=== PATIENT | male | born 1960 | race Caucasian/White ===

== ENCOUNTER 2020-03-01 17:15 | Emergency (ER) | payer SELFPAY ==
--- NOTE | 2020-03-01 17:27 | ED.MALEGU ---
HPI - Male Genitourinary General Chief complaint: Urogenital-Male Stated complaint: issue urinating Time Seen by Provider: 03/01/20 17:27 Source: patient and RN notes reviewed History of Present Illness HPI Narrative: Patient is a 59-year-old male that presents the urgent care with complaints of difficulty urinating as well as burning and decreased stream. Patient states that started yesterday morning. Patient states that he feels like he has urgency to go and is unable to fully empty his bladder . Patient denies any low back pain, abdominal pain, nausea, vomiting, fever. Patient denies any history of urinary tract infections. Patient has not taken anything for his symptoms [id number]. No other acute complaints. Denies blood in the urine. No acute distress noted. Patient read the plan of care. Related Data Home Medications Medication Instructions Recorded Confirmed fenofibrate nanocrystallized 145 mg PO DAILY 03/01/20 03/01/20 metformin 1,000 mg PO DAILY 03/01/20 03/01/20 metoprolol succinate 25 mg PO DAILY 03/01/20 03/01/20 Allergies Allergy/AdvReac Type Severity Reaction Status Date / Time No Known Allergies Allergy Verified 03/01/20 17:18 Review of Systems Review of Systems: Narrative: CONSTITUTIONAL: Denies fever, chills, or sweats. EYES: Denies visual changes, redness, or discharge. ENT: Denies rhinorrhea, congestion, sore throat, or otalgia. CARDIOVASCULAR: Denies chest pain, palpitations, or edema. RESPIRATORY: Denies cough or dyspnea. GASTROINTESTINAL: Denies abdominal pain, nausea, vomiting, or diarrhea. GENITOURINARY: Reports of dysuria, urgency, decreased urinary output SKIN: Denies rash or itching. MUSCULOSKELETAL: Denies back pain, joint pain, or myalgia. NEUROLOGIC: Denies headache, numbness, or weakness. All other systems reviewed are negative, except as documented in HPI. PMFSH Comments At the time of my signature, I reviewed and agree with the nursing past medical, surgical, social, and family history. There is no relevant family history pertinent to the patient complaint. Exam Narrative: Exam Narrative: GENERAL: This is a well-nourished, well-developed patient, in no apparent distress. HEAD: normocephalic, atraumatic. EYES: PERRL. Sclera clear/white. Vision is grossly intact. EARS: External ears normal NOSE: External nose normal with no obvious nasal discharge THROAT: Mucous membranes moist NECK: Neck supple CARDIOVASCULAR: Regular rate and rhythm without murmurs, gallops, or rubs. RESPIRATORY: Clear to auscultation. Breath sounds equal bilaterally. No wheezes, rales, or rhonchi. GASTROINTESTINAL: Abdomen soft, non-tender, nondistended. No guarding. SKIN: warm, intact with no suspicious lesions or rash, good texture and turgor. NEURO: awake, alert, and oriented to person, place and time. There were no obvious focal neurologic abnormalities. EXTREMITIES: No clubbing, cyanosis, or edema. BACK: Negative bilateral CVA tenderness Course Vital Signs Vital signs: Vital Signs Temperature 98 F 03/01/20 17:31 Pulse Rate 98 03/01/20 17:31 Respiratory Rate 18 03/01/20 17:31 Blood Pressure 110/77 03/01/20 17:31 Pulse Oximetry 99 03/01/20 17:31 Temperature 98 F 03/01/20 17:31 Pulse Rate 98 03/01/20 17:31 Respiratory Rate 18 03/01/20 17:31 Blood Pressure 110/77 03/01/20 17:31 Pulse Oximetry 99 03/01/20 17:31 Reviewed MDM - Male Genitourinary MDM Narrative Medical decision making narrative: Reviewed lab results with the patient. He is aware that urine analysis is indicative of urinary tract infection. Advised the patient to complete oral antibiotic regimen as prescribed. We will culture the urine and call if medication needs to be changed or stopped based on culture results. You also may call the facility after a 3-days to check on the results yourself. Patient should eat and drink with the medication. Increase water intake and avoid sugary and caffei
[2020-03-01 17:31] VITALS: BP 110/77; PULSE 98; RESP 18; TEMP 36.6; O2SAT 99
== END 2020-03-01 17:59 | disposition home or self-care (01) ==
PROVIDERS: Emergency Provider Nurse Practitioner Family; PCP Physician Assistant
DX: N39.0 Urinary tract infection, site not specified (principal); Z95.0 Presence of cardiac pacemaker; M17.0 Bilateral primary osteoarthritis of knee
CPT/HCPCS: 81003; 87077; 87086; 87088; 99213; G0463

== ENCOUNTER 2021-03-27 16:05 | Emergency (ER) | payer OTHER, SELFPAY ==
--- NOTE | ~2021-03-27 | XR_ITS ---
XR chest 2V DATE: 03/27/2021 16:48 INDICATION: Cough for one month TECHNIQUE: 2 views COMPARISON: 06/21/2005 portable AP chest FINDINGS: Left-sided transvenous pacemaker device with leads overlying right atrium and right ventric le. Normal heart size. No hilar or mediastinal enlargement. No pulmonary infiltrate or consolidation, pleural effusion or pulmonary vascular congestion or pneumo thorax. Diffuse osteopenia. Degenerative spurring and mild dextroscoliosis of the thoracic spine. IMPRESSION: No active cardiopulmonary disease Left dual-lead pacemaker device Reviewed, dictated and finalized at location A.
[2021-03-27 16:14] VITALS: BP 118/67; PULSE 90; RESP 20; TEMP 36.8; O2SAT 99
--- NOTE | 2021-03-27 16:51 | ED.GENADULT ---
HPI - General Adult General Chief complaint: Upper Respiratory Infection Stated complaint: cough sob Time Seen by Provider: 03/27/21 16:51 Source: patient and RN notes reviewed Mode of arrival: ambulatory Limitations: no limitations History of Present Illness HPI narrative: 60-year-old male presents with complaints of increasing dry cough for the past 30 days. Romaine reports increasing coughing without relief. Constant dry cough with chest congestion. Rhinorrhea and congestion. Denies sore throat. No high fevers, drooling, neck or throat swelling. No chest pain, wheezing, or shortness of breath. No known exacerbation factors. Denies nausea, vomiting, and abdominal pain. Tolerating liquids well. Remains active. The patient reports he have not been diagnosed with COVID-19. The patient reports he received 2 Ze-gen COVID-19 vaccines, last February 09, 2021. The patient reports he is not waiting for the results of a COVID-19 lab test. The patient reports he do not have chills, weakness, or fatigue. The patient reports he do not have any loss of taste or smell, or diarrhea. Denies recent traveling. Denies concerns for COVID-19 or exposures been home with limited outdoor exposure except for essential household needs, work, and return home. At this time, patient is not suspected of having COVID-19. Some parts of this dictation were generated by voice recognition software and may contain typographical and/or grammatical inaccuracies. Related Data Home Medications Medication Instructions Recorded Confirmed metformin 1,000 mg PO BID 03/01/20 03/27/21 metoprolol succinate 25 mg PO DAILY 03/01/20 03/27/21 fenofibrate 160 mg PO DAILY 03/27/21 03/27/21 glipizide 5 mg PO DAILY 03/27/21 03/27/21 pioglitazone 45 mg PO DAILY 03/27/21 03/27/21 sitagliptin [Januvia] 100 mg PO DAILY 03/27/21 03/27/21 Allergies Allergy/AdvReac Type Severity Reaction Status Date / Time No Known Allergies Allergy Verified 03/27/21 16:09 Review of Systems Review of Systems: Narrative: CONSTITUTIONAL: Denies fever, chills, sweats. EYES: Denies visual changes, redness, discharge. ENT: Complains of rhinorrhea, congestion. Denies sore throat, otalgia. CARDIOVASCULAR: Denies chest pain, palpitations, edema. RESPIRATORY: Denies dyspnea, wheezing. Complains of dry cough, chest congestion. GASTROINTESTINAL: Denies abdominal pain, nausea, vomiting, diarrhea. GENITOURINARY: Denies dysuria, hematuria, abnormal discharge. SKIN: Denies rash or itching. MUSCULOSKELETAL: Denies acute back pain, joint pain, or myalgia. NEUROLOGIC: Denies numbness or focal weakness. PSYCHIATRIC: Denies anxiety or depression. All systems reviewed & are unremarkable except as noted in HPI and below. [facility] Past Medical History Medical History (Updated 04/03/21 @ 05:09 by TAWNY Wang) Diabetes Pacemaker Surgical History Surgical History (Updated 04/03/21 @ 05:07 by TAWNY Wang) No significant past surgical history Family History Family History (Updated 04/03/21 @ 05:08 by TAWNY Wang) Father Alive and well Mother COPD (chronic obstructive pulmonary disease) Social History Social History (Updated 04/03/21 @ 05:11 by TAWNY Wang) Smoking status: Never smoker Tobacco type: cigarettes Second hand tobacco smoke exposure: No Alcohol intake: former Substance use: never Living arrangements: with family Occupation/Education: occupation Gender identity (if verbalized by the patient): Male Comments At time of signature, agree with nurse past medical, surgical, social, and family history. There is no relevant family history pertinent to the presenting complaint. Exam Narrative: Exam Narrative: GENERAL: This is a well-nourished, well-developed patient, in no apparent distress. Talks in full sentences and ambulates with steady gait without dyspnea. HEAD: Normocephalic, atraumatic. EYES: PERRL.
== END 2021-03-27 17:10 | disposition home or self-care (01) ==
PROVIDERS: Emergency Provider Nurse Practitioner Family; PCP Physician Assistant
DX: J40 Bronchitis, not specified as acute or chronic (principal); E11.9 Type 2 diabetes mellitus without complications; M17.0 Bilateral primary osteoarthritis of knee; Z95.0 Presence of cardiac pacemaker
CPT/HCPCS: 71046; 99213; G0463

== ENCOUNTER 2021-09-27 15:00 | Outpatient (RCR) | payer OTHER, SELFPAY ==
--- NOTE | 2021-09-20 11:37 | PTOPEVAL ---
PHYSICAL THERAPY EVALUATION AND PLAN OF CARE Thank you for referring Romaine Hodgson to [facility].? The patient is scheduled to be seen for therapy? 1-2x/week for 4-7 weeks. Please review, sign, date and return this plan of care DAPHNE. I agree with and certify that the following plan of care is medically necessary. Referring Physician Date Attending Provider: Anirudh Hitchcock, PA Evaluation Outpatient Past Medical History Cardiovascular History Hx Pacemaker Yes Respiratory History Hx Bronchitis Yes Musculoskeletal History Hx Arthritis Yes: bilat knees Hx Orthopedic Surgery Yes: right wrist Endocrine History Hx Diabetes Yes: medication controlled Diagnosis left shoulder pain Onset March 2021 Subjective Information states that raising overhead, Query Text:As Reported By Patient/ putting pressure on it, and Family reaching behind him he feels a pain that goes down from the shoulder down the arm. Lifting things causes pain. Cannot sleep on left side for longer than 30minutes. There is a lot of ache. States that this started in March with a small ache (after he got his covid shot) and progressively worsening over the the next several months. Now it it is stable and not getting worse or better. Self Report Pain Assessment Left Shoulder(s) Reported Pain Level 0 Pain Description Aching,Pulling Pain Frequency Chronic,Continuous Lowest Pain Intensity 0 Greatest Pain Intensity 6 Pain Aggravating Factors Lifting,Weight Bearing/ Standing Other Pain Aggravating Factors overhead and behind back movement Pain Score Pain Score 0: Self Report Interventions Used Interventions Used By Clinicians Exercise,Joint Mobilization, Manual Therapy Techniques Pain Relief Interventions Used By Position Change Patient Upper Extremity Range of Motion Scapular/ Shoulder Range of Motion Left Shoulder Flexion - Active 125 Shoulder Abduction - Active 105 Shoulder Medial Rotation - Active left PSIS Query Text:Reach Behind the Back Shoulder Lateral Rotation - Active left ear lobe Query Text:Reach Behind the Head Upper Extremity Muscle Strength Testing Scapular/Shoulder Left Shoulder Flexion Strength 4 Good Shoulder Abduct
--- NOTE | 2021-09-27 15:33 | PCPTNOTE ---
Patient did not show up for scheduled appointment this date. Called and spoke with Pt, he stated I called yesterday and told them I wasn't going to be there. Apologized for the miscommunication. Reminded Pt of upcoming appointment on 10/04/21 @ 13:30.
--- NOTE | 2021-10-04 14:28 | PCPTNOTE ---
Patient did not show up for scheduled appointment this date; called patient who answered the phone starting off conversation Don't you guys ever listen to your voice messages! which further stated he was not coming here because pulling a band and moving his arm is not therapy called his doctor and wants to go some place where he can lift weights. Attempted to educate patient on the process of what physical therapy and senior physical therapist are but patient yelled into the phone stating I am not coming back! and hung up the phone. Notified treating physical therapist and cancelled all further appointments.
--- NOTE | 2021-10-09 11:25 | PCPTNOTE ---
PHYSICAL THERAPY DISCHARGE NOTE Attending Provider: Anirudh Hitchcock, PA Patient:Romaine Hodgson Date of :1960 Romaine will be discharged from physical therapy at this time. Patient?s initial visit was on 09/20/2021. He no showed two visits and when we called to inquire, he informed us that he would like to cancel his visits and go to a different facility because he wants to lift weights. Thank you for referring this patient to [facility]. Please review, sign, date and return this discharge summary DAPHNE. I have been updated about the patient's current status and I agree with discharge from the above service at this time. Referring Physician Date
== END 2021-10-10 11:36 | disposition home or self-care (01) ==
LOC: ANHPT 15:00
PROVIDERS: PCP Physician Assistant; Visit Provider Physician Assistant
DX: M25.512 Pain in left shoulder (principal)
CPT/HCPCS: 97140; 97162

== ENCOUNTER 2021-12-18 11:02 | Emergency (ER) | payer OTHER, SELFPAY ==
--- NOTE | ~2021-12-18 | XR_ITS ---
EXAMINATION: XR shoulder LT min 2V, [id number] DATE: 12/18/2021 11:35 INDICATION: Left shoulder pain and limited range of motion and lateral left rib pain post sledding in jury. TECHNIQUE: 1. AP internally and externally rotated, AP oblique externally rotated and transscapular Y views of t he left shoulder were obtained. 2. Frontal view of the chest and 3 views of the left ribs were obtained. COMPARISON: None FINDINGS: Left shoulder: Normal alignment. No fracture. Glenohumeral and acromioclavicular joint spaces are normal. Cardiac p acemaker leads project over the right atrium and right ventricular outflow tract. Chest and left ribs: No rib fractures. Lungs are clear with no focal airspace opacities, pulmonary edema, pleural effusion or pneumothorax. Cardiac silhouette is normal with prominent left paracardial fat pad. Moderate thor acic spondylosis. IMPRESSION: 1. No acute cardiopulmonary or acute osseous abnormality. Reviewed, dictated and finalized at location A. ES 1 THROUGH 6 TEACHER IMPRESSION: 1. No acute cardiopulmonary or acute osseous abnormality.
[2021-12-18 11:10] VITALS: BP 141/90; PULSE 92; RESP 20; TEMP 37.3; O2SAT 100
[2021-12-18 11:17] VITALS: BP 141/90; PULSE 92; RESP 20; TEMP 37.3; O2SAT 100
--- NOTE | 2021-12-18 11:17 | ED.UPPEXIN ---
HPI - Extremity Injury (Upper) General Chief Complaint: Extremity Injury, Upper Stated Complaint: Fell Injury/Left Shoulder Pain Time Seen by Provider: 12/18/21 11:20 Source: patient History of Present Illness HPI narrative: patient presents with left shoulder and left rib pain. Patient states he went sledding yesterday and there is a bump at the end of the hill causing the slide to go out from under him and he landed on his left side. Patient denies any shortness of breath no chest pain states he has pain to his left shoulder with movement and pain to his left rib area. No open areas no bruising noted no swelling noted patient denies any head injury denies any other injuries MD complaint: injury to: left Related Data Home Medications Medication Instructions Recorded Confirmed metformin 1,000 mg PO BID 03/01/20 12/18/21 metoprolol succinate 25 mg PO DAILY 03/01/20 12/18/21 fenofibrate 160 mg PO DAILY 03/27/21 12/18/21 glipizide 5 mg PO DAILY 03/27/21 12/18/21 pioglitazone 45 mg PO DAILY 03/27/21 12/18/21 sitagliptin [Januvia] 100 mg PO DAILY 03/27/21 12/18/21 Allergies Allergy/AdvReac Type Severity Reaction Status Date / Time No Known Allergies Allergy Verified 03/27/21 16:09 Review of Systems Review of Systems: CONSTITUTIONAL: Denies fever, chills, or sweats. EYES: Denies visual changes, redness, or discharge. ENT: Denies rhinorrhea, congestion, sore throat, or otalgia. CARDIOVASCULAR: Denies chest pain, palpitations, or edema. RESPIRATORY: Denies cough or dyspnea. GASTROINTESTINAL: Denies abdominal pain, nausea, vomiting, or diarrhea. GENITOURINARY: Denies dysuria or hematuria. SKIN: Denies rash or itching. MUSCULOSKELETAL: Denies back pain, joint pain, or myalgia. Reports left shoulder and left rib pain NEUROLOGIC: Denies headache, numbness, or weakness. PSYCHIATRIC: Denies anxiety or depression. [facility] Past Medical History Medical History (Updated 12/18/21 @ 11:27 by TAWNY Hays) Diabetes Pacemaker Surgical History Surgical History (Updated 04/03/21 @ 05:07 by TAWNY Wang) No significant past surgical history Family History Family History (Updated 04/03/21 @ 05:08 by TAWNY Wang) Father Alive and well Mother COPD (chronic obstructive pulmonary disease) Social History Social History (Updated 04/03/21 @ 05:11 by TAWNY Wang) Smoking status: Never smoker Tobacco type: cigarettes Second hand tobacco smoke exposure: No Alcohol intake: former Substance use: never Gender identity (if verbalized by the patient): Male Comments At time of signature, agree with nursing past medical, surgical, social and family history. There is no relevant family history pertinent to the presenting complaint Exam Narrative: GENERAL: Well-appearing, well-nourished, and in no acute distress. HEAD: Normocephalic, atraumatic. EYES: PERRLA and EOMI. ENT: Nares clear, no rhinorrhea or epistaxis. Mucous membranes moist. NECK: Supple. CHEST: Clear to auscultation. No respiratory distress. HEART: Regular rate and rhythm. No murmur heard. Normal peripheral pulses. ABDOMEN: Soft, nontender, nondistended, normal active bowel sounds. EXTREMITIES: Normal range of motion. No edema. ALL PAIN REPRODUCIBLE. RIB TENDER. NO CREPITUS OR SQ EMPHYSEMA OR DEFORMITY OR STEP OFFS. NO ECCHYMOSIS OR LESIONS. NO SWELLING, BRUISING, SKIN CHANGES. SKIN INTACT. NORMAL RADIAL PULSE. NO DEFORMITY OF SHOULDER. NO CLAVICLE TENDERNESS. NORMAL UE SENSATION AND STRENGTH. ROM EVALUATED - CAN RAISE UE ABOVE SHOULDER, CAN ABDUCT, ADDUCT, EXTERNALLY ROTATE AND CAN INTERNALLY ROTATE AND RAISE THUMB UP THE SPINE. NO AC JOINT TENDERNESS, CAN CROSS ARM HORIZONTALLY AND PLACE HAND ON OPPOSITE SHOULDER, NO WINGING OF THE SCAPULA. SUPRASPINATUS APPEARS NORMAL WITH ARMS STRAIGHT OUT AT 30 DEGREES, THUMB DOWN , CAN ABDUCT AGAINST RESISTANCE. SKIN: Warm, dry, no rash. NEURO: No focal deficits. Akbar
== END 2021-12-18 12:02 | disposition home or self-care (01) ==
PROVIDERS: Emergency Provider Nurse Practitioner Family; PCP Physician Assistant
DX: S20.20XA Contusion of thorax, unspecified, initial encounter (principal); S40.012A Contusion of left shoulder, initial encounter; W19.XXXA Unspecified fall, initial encounter; Y93.23 Activity, snow (alpine) (downhill) skiing, snowboarding, sledding, tobogganing and snow tubing; E11.9 Type 2 diabetes mellitus without complications; Z95.0 Presence of cardiac pacemaker
CPT/HCPCS: 71101; 73030; 99214; G0463

== ENCOUNTER 2021-12-29 13:19 | Emergency (ER) | payer OTHER, SELFPAY ==
--- NOTE | ~2021-12-29 | XR_ITS ---
EXAMINATION: XR ribs LT 2V INDICATION: Chest pain after coughing, initial encounter TECHNIQUE: 3 views of the left ribs were obtained. COMPARISON: None. FINDINGS: There are acute nondisplaced fractures of the left fifth, eighth, and ninth ribs. There are minimal airspace opacities of the lung bases. Cardiomegaly is noted. There is no pleural effusion or pneumothorax. A dual-lead cardiac pacemaker of the left chest wall ends with leads in expected locat ions. IMPRESSION: 1. Nondisplaced fractures of the left fifth, eighth, and ninth ribs. 2. Cardiomegaly. Reviewed, dictated and finalized at location A. [facility]
[2021-12-29 13:23] VITALS: BP 138/81; PULSE 94; RESP 16; TEMP 36.4; O2SAT 100
--- NOTE | 2021-12-29 13:32 | ED.GENADULT ---
HPI - General Adult General Chief complaint: Back Pain/Injury Stated complaint: Sharp pain in left rib area pain Time Seen by Provider: 12/29/21 13:22 Source: patient and RN notes reviewed History of Present Illness HPI narrative: Patient is 61-year-old male who presents the urgent care with complaints of left rib pain. Patient states that a couple weeks ago he was in here after a sledding incident and had multiple contusions . Patient states that his x-rays were all negative at that time and he started to feel much better. States that last night he had a mild cough and immediate stabbing in the left lateral rib region. Patient states that the pain increases with movement or cough. States that he did take tramadol for the pain. Denies of any recent new injury or fall. Denies of any shortness of breath or chest pain. No other acute complaints. No acute distress noted. Patient read the plan of care. Some parts of this dictation were generated by voice recognition software and may contain typographical and/or grammatical inaccuracies. Related Data Home Medications Medication Instructions Recorded Confirmed metformin 1,000 mg PO BID 03/01/20 12/18/21 metoprolol succinate 25 mg PO DAILY 03/01/20 12/18/21 fenofibrate 160 mg PO DAILY 03/27/21 12/18/21 glipizide 5 mg PO DAILY 03/27/21 12/18/21 pioglitazone 45 mg PO DAILY 03/27/21 12/18/21 sitagliptin [Januvia] 100 mg PO DAILY 03/27/21 12/18/21 Allergies Allergy/AdvReac Type Severity Reaction Status Date / Time No Known Allergies Allergy Verified 12/29/21 13:32 Review of Systems Review of Systems: CONSTITUTIONAL: Denies fever, chills, or sweats. EYES: Denies visual changes, redness, or discharge. ENT: Denies rhinorrhea, congestion, sore throat, or otalgia. CARDIOVASCULAR: Denies chest pain, palpitations, or edema. RESPIRATORY: Denies cough or dyspnea. GASTROINTESTINAL: Denies abdominal pain, nausea, vomiting, or diarrhea. GENITOURINARY: Denies dysuria or hematuria. SKIN: Denies rash or itching. MUSCULOSKELETAL: Reports of left lateral rib pain. Denies back pain, joint pain, or myalgia. NEUROLOGIC: Denies headache, numbness, or weakness. All other systems reviewed are negative, except as documented in HPI. [facility] Past Medical History Medical History (Updated 12/29/21 @ 13:59 by TAWNY Christensen) Diabetes Pacemaker Surgical History Surgical History (Updated 04/03/21 @ 05:07 by TAWNY Wang) No significant past surgical history Family History Family History (Updated 04/03/21 @ 05:08 by TAWNY Wang) Father Alive and well Mother COPD (chronic obstructive pulmonary disease) Social History Social History (Updated 04/03/21 @ 05:11 by TAWNY Wang) Smoking status: Never smoker Tobacco type: cigarettes Second hand tobacco smoke exposure: No Alcohol intake: former Substance use: never Gender identity (if verbalized by the patient): Male Comments At the time of my signature, I reviewed and agree with the nursing past medical, surgical, social, and family history. There is no relevant family history pertinent to the patient complaint. Exam Narrative: GENERAL: This is a well-nourished, well-developed patient, in no apparent distress. HEAD: normocephalic, atraumatic. EYES: PERRL. Sclera clear/white. Vision is grossly intact. EARS: External ears normal NOSE: External nose normal with no obvious nasal discharge, nares without redness, no rhinorrhea. THROAT: Mucous membranes moist NECK: Neck supple CARDIOVASCULAR: Regular rate and rhythm without murmurs, gallops, or rubs. RESPIRATORY: Clear to auscultation. Breath sounds equal bilaterally. No wheezes, rales, or rhonchi. SKIN: warm, intact with no suspicious lesions or rash, good texture and turgor. NEURO: awake, alert, and oriented to person, place and time. There were no obvious focal neurologic abnormalities. EXTREMITIES: No clubbing, cyanosis,
== END 2021-12-29 14:05 | disposition home or self-care (01) ==
PROVIDERS: Emergency Provider Nurse Practitioner Family; PCP Physician Assistant
DX: S22.42XA Multiple fractures of ribs, left side, initial encounter for closed fracture (principal); X58.XXXA Exposure to other specified factors, initial encounter; E11.9 Type 2 diabetes mellitus without complications; Z95.0 Presence of cardiac pacemaker
CPT/HCPCS: 71100; 99213; G0463

== ENCOUNTER 2022-04-05 10:05 | Emergency (ER) | payer OTHER, SELFPAY ==
--- NOTE | ~2022-04-05 | CT_ITS ---
EXAMINATION: CT cervical spine wo con DATE: 04/05/2022 10:57 INDICATION: Left hand numbness. Left upper limb pain. TECHNIQUE: Computed tomography (CT) of the cervical spine was performed without intravenous contrast. Automated exposure control and iterative reconstruction technique were employed. The dose-length pro duct was 483.64 mGy-cm. COMPARISON: None FINDINGS: There is 5 degrees dextrocurvature of cervical spine. Vertebral body heights are normal. Th ere is mildly decreased disc height at C3-C4 and C4-C5 and moderately decreased disc height at C5-C6 and C6-C7. The following disc levels are specifically discussed: C2-C3: There is mild bilateral uncovertebral joint osteoarthritis. There is mild bilateral facet join t osteoarthritis. There is no neural foraminal stenosis. There is no central canal stenosis. C3-C4: There is mild bilateral uncovertebral joint osteoarthritis. There is mild right and moderate l eft facet joint osteoarthritis. There is no neural foraminal stenosis. There is mild central canal st enosis. C4-C5: There is mild bilateral uncovertebral joint osteoarthritis. There is mild bilateral facet join t osteoarthritis. There is no neural foraminal stenosis. There is mild central canal stenosis. C5-C6: There is severe bilateral uncovertebral joint osteoarthritis. There is mild right and moderate left facet joint osteoarthritis. There is mild bilateral neural foraminal stenosis. There is mild ce ntral canal stenosis. C6-C7: There is mild right and severe left uncovertebral joint osteoarthritis. There is mild right an d moderate left facet joint osteoarthritis. There is mild left neural foraminal stenosis. There is mi ld central canal stenosis. C7-T1: There is no uncovertebral joint osteoarthritis. There is mild right and moderate left facet darius int osteoarthritis. There is no neural foraminal stenosis. There is no central canal stenosis. IMPRESSION: 1. Moderate cervical spondylosis. Reviewed, dictated and finalized at location A.
[2022-04-05 10:13] VITALS: BP 130/81; PULSE 100; RESP 16; TEMP 36.8; O2SAT 99
--- NOTE | 2022-04-05 10:53 | ED.UPPEXIN ---
HPI - Extremity Injury (Upper) General Chief Complaint: Extremity Injury, Upper Stated Complaint: left hand numbness Time Seen by Provider: 04/05/22 10:26 Source: patient Mode of arrival: ambulatory Limitations: no limitations History of Present Illness HPI narrative: 61-year-old male presents today with complaints of numbness to the left hand. Patient states he woke up at 230 this morning and noted numbness but did not think much of it. Patient states he thought he just slept wrong. When patient woke up this morning to get his stay started he said he noticed numbness still to his hand and it continues now. Patient with intermittent sharp pain to hand or mid arm. Patient denies any neck trauma, back pain, urinary incontinence, stool incontinence, saddle paresthesia, or weakness to upper or lower extremities. Patient denies having anything like this happen in the past. Patient does have a history of diabetes which currently is not well controlled. Patient states his last hemoglobin A1c was 8 and that was prior to him having COVID. After having COVID he states blood sugars have been not controlled well. Has been high as the 350s. Related Data Home Medications Medication Instructions Recorded Confirmed metformin 1,000 mg tablet 1,000 mg PO BID 03/01/20 12/29/21 metoprolol succinate 25 mg 25 mg PO DAILY 03/01/20 12/29/21 tablet,extended release 24 hr fenofibrate 160 mg tablet 160 mg PO DAILY 03/27/21 12/29/21 glipizide 5 mg tablet 5 mg PO DAILY 03/27/21 12/29/21 pioglitazone 45 mg tablet 45 mg PO DAILY 03/27/21 12/29/21 sitagliptin 100 mg tablet (Januvia) 100 mg PO DAILY 03/27/21 12/29/21 Allergies Allergy/AdvReac Type Severity Reaction Status Date / Time No Known Allergies Allergy Verified 04/05/22 10:16 Review of Systems Review of Systems: CONSTITUTIONAL: Denies fever, chills, or sweats. EYES: Denies visual changes, redness, or discharge. ENT: Denies rhinorrhea, congestion, sore throat, or otalgia. CARDIOVASCULAR: Denies chest pain, palpitations, or edema. RESPIRATORY: Denies cough or dyspnea. GASTROINTESTINAL: Denies abdominal pain, nausea, vomiting, or diarrhea. GENITOURINARY: Denies dysuria or hematuria. SKIN: Denies rash or itching. MUSCULOSKELETAL: Denies back pain, joint pain, or myalgia. NEUROLOGIC: Numbness to the left hand with sharp pinpricks intermittently to hand and mid arm. Denies headache, dizziness, or weakness. PSYCHIATRIC: Denies anxiety or depression. PMFSH Past Medical History Medical History Diabetes Pacemaker Surgical History Surgical History No significant past surgical history Family History Family History Father Alive and well Mother COPD (chronic obstructive pulmonary disease) Social History Social History Smoking status: Never smoker Tobacco type: cigarettes Second hand tobacco smoke exposure: No Alcohol intake: former Substance use: never Gender identity (if verbalized by the patient): Male Exam Narrative: GENERAL: Well-appearing, well-nourished, and in no acute distress. HEAD: Normocephalic, atraumatic. EYES: PERRLA and EOMI. ENT: Nares clear, no rhinorrhea or epistaxis. Mucous membranes moist. Oropharynx without tonsillar hypertrophy exudate or other lesions. Bilateral TMs pearly grant nonbulging NECK: Supple. No adenopathy or masses. No carotid bruits or JVD CHEST: Clear to auscultation. No respiratory distress. No wheezes rales or rhonchi HEART: Regular rate and rhythm. No murmur heard. Normal peripheral pulses. ABDOMEN: Soft, nontender, nondistended, normal active bowel sounds. EXTREMITIES: Normal range of motion. No edema. Full ROM to left upper extremity. Sensation intact. SKIN: Warm, dry, no rash. NEURO: No focal defic
[2022-04-05] MEDS: KETOROLAC 30 MG/ML VIAL (*BKC) IM (11:04)
[2022-04-05 12:43] VITALS: BP 134/86; PULSE 95; RESP 14; O2SAT 96
== END 2022-04-05 12:45 | disposition home or self-care (01) ==
PROVIDERS: Emergency Provider Nurse Practitioner Family; PCP Physician Assistant
DX: M47.22 Other spondylosis with radiculopathy, cervical region (principal); E11.9 Type 2 diabetes mellitus without complications; Z86.16 Personal history of COVID-19; Z95.0 Presence of cardiac pacemaker; Z79.84 Long term (current) use of oral hypoglycemic drugs
CPT/HCPCS: 72125; 96372; 99284; J1885

== ENCOUNTER 2022-08-09 09:57 | Outpatient (CLI) | payer OTHER, SELFPAY | END 2022-08-09 09:58 | disposition home or self-care (01) | LOC: ANHAUDASC 09:57 | PROVIDERS: PCP Physician Assistant; Visit Provider Physician Assistant | DX: H90.3 Sensorineural hearing loss, bilateral (principal) | CPT/HCPCS: 92557; 92567 ==

== ENCOUNTER 2022-10-08 18:41 | Emergency (ER) | payer OTHER, SELFPAY ==
[2022-10-08 19:18] VITALS: BP 137/78; PULSE 111; RESP 20; TEMP 37.4; O2SAT 96
--- NOTE | 2022-10-08 19:53 | ED.URI ---
HPI - URI/Sore Throat General Chief Complaint: Upper Respiratory Infection Stated Complaint: congestion head and chest Time Seen by Provider: 10/08/22 19:53 Source: patient, RN notes reviewed and old records reviewed Mode of arrival: ambulatory Limitations: no limitations History of Present Illness HPI Narrative: 62 old male presents to the [facility] with head congestion and chest congestion for at least 10 days. Patient has a history of diabetes. History of pacemaker. Denies any chest pain or shortness of breath. No abdominal pain. Denies fevers. MD elicited complaint: cough and nasal congestion Related Data Home Medications Medication Instructions Recorded Confirmed metformin 1,000 mg tablet 1,000 mg PO BID 03/01/20 12/29/21 metoprolol succinate 25 mg 25 mg PO DAILY 03/01/20 12/29/21 tablet,extended release 24 hr fenofibrate 160 mg tablet 160 mg PO DAILY 03/27/21 12/29/21 glipizide 5 mg tablet 5 mg PO DAILY 03/27/21 12/29/21 pioglitazone 45 mg tablet 45 mg PO DAILY 03/27/21 12/29/21 sitagliptin phosphate 100 mg 100 mg PO DAILY 03/27/21 12/29/21 tablet (Januvia) Allergies Allergy/AdvReac Type Severity Reaction Status Date / Time No Known Allergies Allergy Verified 10/08/22 20:10 Review of Systems Review of Systems: All systems reviewed & are unremarkable except as noted in HPI and below Constitutional: Constitutional: Reports as per HPI, Denies body ache(s), Reports chills, Denies fever(s) and Denies headache(s) Eyes: Eyes: Reports no additional eye complaints ENT: Reports system reviewed and no additional complaints, except as documented and Denies headache(s) Cardiovascular: Cardiovascular: Reports no additional cardiovascular complaints, Denies chest pain and Denies dyspnea Respiratory: Respiratory: Reports as per HPI, Reports chest congestion, Reports cough, Denies dyspnea and Denies wheezing Gastrointestinal: Gastrointestinal: Reports no additional gastrointestinal complaints and Denies abdominal pain Musculoskeletal: Musculoskeletal: Reports no additional musculoskeletal complaints Integumentary/Breasts: Skin/Breast: Reports system reviewed and no additional complaints, except as docu Neurologic: Reports system reviewed and no additional complaints, except as documented and Denies headache(s) Psychiatric: Psychiatric: Reports no additional psychiatric complaints Allergic/Immunologic: Allergic/Immunologic: Reports no additional allergic/immunologic complaints PMFSH Past Medical History Medical History Diabetes Pacemaker Surgical History Surgical History No significant past surgical history Family History Family History Father Alive and well Mother COPD (chronic obstructive pulmonary disease) Social History Social History Smoking status: Never smoker Tobacco type: cigarettes Second hand tobacco smoke exposure: No Alcohol intake: former Substance use: never Gender identity (if verbalized by the patient): Male Comments At the time of my signature, I reviewed and agree with the nursing past medical, surgical, social, and family history. There is no relevant family history pertinent to the patient complaint. Exam Const: General: cooperative, comfortable, no acute distress, well developed, alert, ill appearing chronically and well nourished Nutritional Appearance: well nourished and obese Orientation/consciousness: patient oriented x3 Limitations: no limitations HENMT: Head: normal to inspection Ears: external ears normal Face/Nose/Sinus: Normal external nose present, Normal nares present, Normal nasal mucous membranes and turbinates present and normal facial exam Face and sinus: normal facial exam Mouth: Yes Normal oral and palatal muc
== END 2022-10-08 20:06 | disposition home or self-care (01) ==
PROVIDERS: Emergency Provider Nurse Practitioner; PCP Physician Assistant
DX: J40 Bronchitis, not specified as acute or chronic (principal); E11.9 Type 2 diabetes mellitus without complications; Z95.0 Presence of cardiac pacemaker
CPT/HCPCS: 99213; G0463

== ENCOUNTER 2023-01-30 09:48 | Emergency (ER) | payer OTHER, SELFPAY ==
--- NOTE | 2023-01-30 09:53 | ED.URI ---
HPI - URI/Sore Throat General Chief Complaint: Upper Respiratory Infection Stated Complaint: dizzy cough w/chest burning Time Seen by Provider: 01/30/23 09:53 Source: patient and RN notes reviewed History of Present Illness HPI Narrative: Patient is a 62-year-old male who presents to urgent care with complaints of cough, chest congestion, fatigue. Patient states that yesterday he started vomiting and has vomited 5 times since then. Denies any abdominal pain, nausea, diarrhea. 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 Patient denies any chest pain. Denies any known fevers. No other acute complaints. No acute distress noted. Patient aware of the plan of care. Some parts of this dictation were generated by voice recognition software and may contain typographical and/or grammatical inaccuracies. Related Data Home Medications Medication Instructions Recorded Confirmed metformin 1,000 mg tablet 1,000 mg PO BID 03/01/20 01/30/23 metoprolol succinate 25 mg 25 mg PO DAILY 03/01/20 01/30/23 tablet,extended release 24 hr fenofibrate 160 mg tablet 160 mg PO DAILY 03/27/21 01/30/23 glipizide 5 mg tablet 5 mg PO DAILY 03/27/21 01/30/23 pioglitazone 45 mg tablet 45 mg PO DAILY 03/27/21 01/30/23 sitagliptin phosphate 100 mg 100 mg PO DAILY 03/27/21 01/30/23 tablet (Januvia) Allergies Allergy/AdvReac Type Severity Reaction Status Date / Time No Known Allergies Allergy Verified 01/30/23 10:07 Review of Systems Review of Systems: CONSTITUTIONAL: Denies fever, chills, or sweats. EYES: Denies visual changes, redness, or discharge. ENT: Denies rhinorrhea, congestion, sore throat, or otalgia. CARDIOVASCULAR: Denies chest pain, palpitations, or edema. RESPIRATORY: Reports of cough without dyspnea GASTROINTESTINAL: Reports of vomiting without abdominal pain, nausea or diarrhea GENITOURINARY: Denies dysuria or hematuria. SKIN: Denies rash or itching. MUSCULOSKELETAL: Denies back pain, joint pain. Reports body aches NEUROLOGIC: Denies headache, numbness, or weakness. All other systems reviewed are negative, except as documented in HPI. [facility] Past Medical History Medical History Diabetes Pacemaker Surgical History Surgical History No significant past surgical history Family History Family History Father Alive and well Mother COPD (chronic obstructive pulmonary disease) Social History Social History Smoking status: Never smoker Tobacco type: cigarettes Second hand tobacco smoke exposure: No Alcohol intake: former Substance use: never Living arrangements: with family Occupation/Education: occupation Gender identity (if verbalized by the patient): Male Comments At the time of my signature, I reviewed and agree with the nursing past medical, surgical, social, and family history. There is no relevant family history pertinent to the patient complaint. Exam Narrative: GENERAL: This is a well-nourished, well-developed patient, poor hygiene HEAD: normocephalic, atraumatic. EYES: PERRL. Sclera clear/white. Vision is grossly intact. EARS: External ears normal, auditory canals clear and without drainage, TMs normal without perforation. Hearing grossly intact. NOSE: External nose normal with no obvious nasal discharge, nares without redness, no rhinorrhea. THROAT: Mucous membranes moist, posterior pharynx clear. Mild postnasal drainage NECK: Neck supple RESPIRATORY: Clear to auscultation. Breath sounds equal bilaterally. No wheezes, rales, or rhonchi. GASTROINTESTINAL: Abdomen soft, non-tender, nondistended. Bowel sounds are active. SKIN: warm, intact with no suspicious lesions or rash, good texture and turgor. NEURO: awake, alert
[2023-01-30 09:54] VITALS: BP 110/64; PULSE 114; RESP 20; TEMP 36.4; O2SAT 97
== END 2023-01-30 10:39 | disposition home or self-care (01) ==
PROVIDERS: Emergency Provider Nurse Practitioner Family; PCP Physician Assistant
DX: B34.9 Viral infection, unspecified (principal); E11.9 Type 2 diabetes mellitus without complications; Z79.84 Long term (current) use of oral hypoglycemic drugs; Z95.0 Presence of cardiac pacemaker
CPT/HCPCS: 99213; G0463

== ENCOUNTER 2023-08-24 21:49 | Emergency (ER) | payer OTHER, SELFPAY ==
--- NOTE | ~2023-08-24 | XR_ITS ---
EXAMINATION: XR chest 2V DATE: 08/24/2023 22:03 INDICATION: Inhalation injury TECHNIQUE: PA and lateral views of the chest were obtained. COMPARISON: Chest radiograph dated 03/27/2021 FINDINGS: The lungs remain clear with no focal airspace opacities, pulmonary edema, pleural effusion or pneumot horax. Heart size is normal. Dual lead pacemaker seen with leads projecting over the expected locatio ns of the right atrium and right ventricle. Mild thoracic kyphosis with moderate spondylosis. IMPRESSION: 1. No acute cardiopulmonary disease. Reviewed, dictated and finalized at location A.
[2023-08-24 21:55] VITALS: BP 150/119; PULSE 118; RESP 24; TEMP 37.2; O2SAT 97; O2SAT 98
--- NOTE | 2023-08-24 21:57 | ED.GENADULT ---
HPI - General Adult General Chief complaint: Shortness of Breath/Dyspnea Stated complaint: ambulance Time Seen by Provider: 08/24/23 21:52 Source: patient Mode of arrival: EMS Limitations: no limitations History of Present Illness HPI narrative: 63 yo M with PMHx of DM 2, s/p pacemaker placement, bronchitis, presents to ED by EMS for inhalation injury. He was setting off 7--8 cans of bug fogger inside the house today, without any open windows. The space was completely enclosed. Once he re-enters the house, he experienced tickling in his throat, and was coughing non-stop. Related Data Home Medications Medication Instructions Recorded Confirmed metformin 1,000 mg tablet 1,000 mg PO BID 03/01/20 08/24/23 metoprolol succinate 25 mg 25 mg PO DAILY 03/01/20 08/24/23 tablet,extended release 24 hr fenofibrate 160 mg tablet 160 mg PO DAILY 03/27/21 08/24/23 glipizide 5 mg tablet 5 mg PO DAILY 03/27/21 08/24/23 pioglitazone 45 mg tablet 45 mg PO DAILY 03/27/21 08/24/23 sitagliptin phosphate 100 mg 100 mg PO DAILY 03/27/21 08/24/23 tablet (Januvia) Allergies Allergy/AdvReac Type Severity Reaction Status Date / Time No Known Allergies Allergy Verified 01/30/23 10:07 Review of Systems Constitutional: Constitutional: Reports as per HPI and Reports no additional constitutional complaints Eyes: Eyes: Reports as per HPI and Reports no additional eye complaints ENT: Reports system reviewed and no additional complaints, except as documented and Reports as per HPI Cardiovascular: Cardiovascular: Reports as per HPI and Reports no additional cardiovascular complaints Respiratory: Respiratory: Reports as per HPI and Reports no additional respiratory complaints Gastrointestinal: Gastrointestinal: Reports as per HPI and Reports no additional gastrointestinal complaints Genitourinary: Genitourinary: Reports as per HPI Musculoskeletal: Musculoskeletal: Reports no additional musculoskeletal complaints and Reports as per HPI Integumentary/Breasts: Skin/Breast: Reports system reviewed and no additional complaints, except as docu and Reports as per HPI Neurologic: Reports system reviewed and no additional complaints, except as documented and Reports as per HPI Psychiatric: Psychiatric: Reports no additional psychiatric complaints and Reports as per HPI Endocrine: Endocrine: Reports no additional endocrine complaints and Reports as per HPI Hematologic/Lymphatic: Hematologic/Lymphatic: Reports no additional hematologic/lymphatic complaints and Reports as per HPI Allergic/Immunologic: Allergic/Immunologic: Reports no additional allergic/immunologic complaints and Reports as per HPI PMFSH Past Medical History Medical History Diabetes Pacemaker Surgical History Surgical History No significant past surgical history Family History Family History Father Alive and well Mother COPD (chronic obstructive pulmonary disease) Social History Social History Smoking status: Never smoker Tobacco type: cigarettes Second hand tobacco smoke exposure: No Alcohol intake: former Substance use: never Living arrangements: with family Occupation/Education: occupation Gender identity (if verbalized by the patient): Male Exam Const: General: cooperative, healthy appearing, comfortable, no acute distress, well developed, alert, awake, average body habitus and well nourished Nutritional Appearance: average body habitus and well nourished Orientation/consciousness: oriented to person, oriented to place and oriented to time Limitations: no limitations HENMT: Head: normal to inspection Ears: hearing grossly normal bilaterally, external ears normal and TM's normal bilaterally Face/Nose/Sinus: Normal ex
--- NOTE | 2023-08-24 22:11 | PC.NURSE ---
2210-STEAM TABLE ASSOCIATE ATTEMPTED CONTACT WITH LAB, UNABLE TO MAKE CONTACT AT THIS TIME. STEAM TABLE ASSOCIATE AND TECH AWARE AND WILL ATTEMPT AGAIN.
[2023-08-24] MEDS: ALBUTEROL SULFATE NEB 2.5 MG/3 ML INH INHALATION (22:14)
--- NOTE | 2023-08-24 22:14 | PC.NURSE ---
2212-disregard previous note. lab, at bedside performing lab draw
[2023-08-24 22:15] VITALS: PULSE 106; RESP 18; O2SAT 98
[2023-08-24] MEDS: methylPREDNISolone SOD SUCC 125 MG VIAL IM (22:15)
[2023-08-24 22:17] LABS: Hemoglobin 14.4 g/dL (14.0-18.0); Mean Corpuscular HGB Conc 34.3 g/dL (32.0-36.0); Mean Corpuscular Hemoglobin 29.6 pg (27.0-31.0); Mean Corpuscular Volume 86.2 fL (78.0-102.0); Mean Platelet Volume 9.6 fl (8.7-11.0); Platelet Count Result 250 K/mm3 (150-420); Red Blood Count 4.87 M/mm3 (4.70-6.10); Red Cell Distribution Width 12.8 % (11.6-14.4); White Blood Count 10.2 K/mm3 (4.8-10.8)
[2023-08-24 22:19] VITALS: PULSE 106; RESP 18; O2SAT 98
[2023-08-24 22:32] LABS: Alanine Aminotransferase 24 U/L (16-63); Albumin Level 4.2 g/dL (3.4-5.0); Alkaline Phosphatase 51 U/L (46-116); Anion Gap 15 mmol/L (8-16); Aspartate Amino Transferase 14 U/L (15-37); Bilirubin,Total 0.4 mg/dL (0.00-1.00); Blood Urea Nitrogen 21 mg/dL (7-18); Calcium 9.5 mg/dL (8.5-10.1); Carbon Dioxide 24 mmol/L (21-32); Chloride 103 mmol/L (98-108); Estimated CRCL calculation 51 ml/min; Estimated Glomerular Filt Rate 46; Glucose 195 mg/dL (70-99); Osmolality Calculated 302 mOsm/kg (285-295); Potassium 4.2 mmol/L (3.5-5.1); Sodium 142 mmol/L (136-145); Total Protein 7.3 g/dL (6.4-8.2)
[2023-08-24 22:34] VITALS: BP 123/74; PULSE 103; RESP 20; O2SAT 94
--- NOTE | 2023-08-24 22:46 | PC.NURSE ---
2245-DIAMOND FINISHING SUPERVISOR AT BEDSIDE, PT NOTED TO BE RESTING ON STRETCHER, LEFT SIDE LYING, WITH NOTED RESOLVED COUGH. PT REPORTS EASIER BREATHING AND DECREASED COUGHING. PT DENIES ANY NEEDS AT THIS TIME, CALL LIGHT REMAINS IN REACH. PT DAUGHTER REMAINS PRESENT AT BEDSIDE AND DENIES ANY QUESTIONS AT THIS TIME WELL. PHYSICIAN MADE AWARE AND ADVISED DIAMOND FINISHING SUPERVISOR OF WANTING TO KEEP PT IN ER UNIT FOR ADDITIONAL OBSERVATION. PHYSICIAN ARRIVES TO PT BEDSIDE TO DISCUSS PLAN OF CARE. PT PROVIDED WITH WARM BLANKET AND LIGHTS DIMMED FOR PT COMFORT AND SLEEP PROMOTION.
[2023-08-25 00:05] VITALS: BP 98/70; PULSE 100; RESP 20; O2SAT 95
[2023-08-25 03:08] VITALS: BP 128/86; PULSE 73; RESP 20; O2SAT 94
[2023-08-25 06:25] VITALS: BP 135/72; PULSE 64; RESP 20; O2SAT 95
== END 2023-08-25 06:56 | disposition home or self-care (01) ==
PROVIDERS: Emergency Provider Emergency Medicine; PCP Physician Assistant
DX: T59.891A Toxic effect of other specified gases, fumes and vapors, accidental (unintentional), initial encounter (principal); R05.9 Cough, unspecified; R06.02 Shortness of breath; E11.9 Type 2 diabetes mellitus without complications; Z79.899 Other long term (current) drug therapy; Z95.0 Presence of cardiac pacemaker
CPT/HCPCS: 36415; 71046; 80053; 85027; 94640; 96372; 99283; J2930

== ENCOUNTER 2023-10-14 10:29 | Emergency (ER) | payer OTHER, SELFPAY ==
[2023-10-14 10:35] VITALS: BP 130/69; PULSE 89; RESP 20; TEMP 36.6; O2SAT 98
--- NOTE | 2023-10-14 11:09 | ED.GENADULT ---
HPI - General Adult General Chief complaint: Unspecified Stated complaint: neck body ache/fatigue/diarrhea Time Seen by Provider: 10/14/23 11:09 Source: patient, RN notes reviewed and old records reviewed Mode of arrival: ambulatory Limitations: no limitations History of Present Illness HPI narrative: 7-year-old male presents [facility] with complaint of fatigue, myalgias, headache, neck pain, diarrhea that started Saturday. Patient states blood sugars have been running in the 180s and 90s, patient also states had an 8 lb weight loss since Saturday. Patient states call primary care physician who told him to come here. Related Data Home Medications Medication Instructions Recorded Confirmed metformin 1,000 mg tablet 1,000 mg PO BID 03/01/20 10/14/23 metoprolol succinate 25 mg 25 mg PO DAILY 03/01/20 10/14/23 tablet,extended release 24 hr fenofibrate 160 mg tablet 160 mg PO DAILY 03/27/21 10/14/23 glipizide 5 mg tablet 5 mg PO DAILY 03/27/21 10/14/23 pioglitazone 45 mg tablet 45 mg PO DAILY 03/27/21 10/14/23 sitagliptin phosphate 100 mg 100 mg PO DAILY 03/27/21 10/14/23 tablet (Januvia) Allergies Allergy/AdvReac Type Severity Reaction Status Date / Time No Known Allergies Allergy Verified 10/14/23 10:47 Review of Systems Constitutional: Constitutional: Reports as per HPI, Reports body ache(s), Reports fatigue, Reports headache(s) and Reports malaise Eyes: Eyes: Reports no additional eye complaints ENT: Reports system reviewed and no additional complaints, except as documented Cardiovascular: Cardiovascular: Reports no additional cardiovascular complaints Respiratory: Respiratory: Reports no additional respiratory complaints Gastrointestinal: Gastrointestinal: Reports as per HPI, Reports diarrhea, Denies nausea and Denies vomiting Neurologic: Reports system reviewed and no additional complaints, except as documented PMFSH Past Medical History Medical History Diabetes Pacemaker Surgical History Surgical History No significant past surgical history Family History Family History Father Alive and well Mother COPD (chronic obstructive pulmonary disease) Social History Social History Smoking status: Never smoker Tobacco type: cigarettes Second hand tobacco smoke exposure: No Alcohol intake: former Substance use: never Living arrangements: with family Occupation/Education: occupation Gender identity (if verbalized by the patient): Male Comments At the time of my signature, I reviewed and agree with the nursing past medical, surgical, social, and family history. There is no relevant family history pertinent to the patient complaint. Exam Const: General: cooperative, healthy appearing, no acute distress and well nourished Nutritional Appearance: well nourished Orientation/consciousness: patient oriented x3 Limitations: no limitations HENMT: Head: normal to inspection and normocephalic Ears: external ears normal, TM's normal bilaterally, mastoids normal and Abnormal EAC present Face/Nose/Sinus: normal facial exam Face and sinus: normal facial exam Mouth: Yes Normal oral and palatal mucosa present, Yes oropharynx normal and Yes moist mucous membranes Throat: posterior oropharynx normal, tonsils normal, uvula midline and no uvular edema Eyes: General: appearance normal, both eyes and all related structures Sclera: sclerae normal Pupils: Equal, round and reactive pupils present Resp: Effort & Inspection: normal respiratory effort, able to speak in complete sentences, no audible wheezes, no cough, no respiratory distress and no retractions Auscultation: clear to auscultation bilaterally, no crackles, no rales, no rhonchi and no wheezes Cardio:
== END 2023-10-14 11:42 | disposition short-term general hospital (02) ==
PROVIDERS: Emergency Provider Registered Nurse; PCP Physician Assistant
DX: R63.4 Abnormal weight loss (principal); Z68.35 Body mass index [BMI] 35.0-35.9, adult; E11.65 Type 2 diabetes mellitus with hyperglycemia; Z79.84 Long term (current) use of oral hypoglycemic drugs; R19.7 Diarrhea, unspecified; Z20.822 Contact with and (suspected) exposure to COVID-19; Z95.0 Presence of cardiac pacemaker
CPT/HCPCS: 87426; 99213; C9803; G0463